=== PATIENT | male | born 1965 | race Two or more races ===

== ENCOUNTER 2016-08-30 08:10 | Emergency (ER) | payer OTHER ==
[~2016-08-30] VITALS: Ht 167.6 cm; Wt 90.7 kg
[2016-08-30 08:20] VITALS: BP 157/95
== END 2016-08-30 10:33 | disposition home or self-care (01) ==
LOC: ER 08:13
DX: S83.91XA Sprain of unspecified site of right knee, initial encounter (principal); S80.01XA Contusion of right knee, initial encounter; W23.0XXA Caught, crushed, jammed, or pinched between moving objects, initial encounter; Y93.89 Activity, other specified; Y99.8 Other external cause status; Y92.89 Other specified places as the place of occurrence of the external cause
CPT/HCPCS: 10140; 73610